=== PATIENT | male | born 1995 | race Two or more races ===

== ENCOUNTER 2019-12-26 10:10 | Emergency (ER) | payer SELFPAY ==
--- NOTE | 2019-12-26 10:33 | EDM.PDOC ---
ED HPI GENERAL MEDICAL PROBLEM - General Chief Complaint: Laceration Stated Complaint: LT INDEX FINGER Time Seen by Provider: 12/26/19 10:28 Source of Information: Reports: Patient, Family History Limitations: Reports: No Limitations - History of Present Illness INITIAL COMMENTS - FREE TEXT/NARRATIVE: Patient sustained a laceration to the left index finger @1 hour ago while slicing vegetables. Last Tetanus booster was 1 year ago. Patient is right hand dominant. Onset Date: 12/26/19 Onset Time: 09:20 Location: Reports: Upper Extremity, Left Severity: Mild Left Finger-Index Pain Score (Numeric/FACES): 3 - Related Data Allergies Allergy/AdvReac Type Severity Reaction Status Date / Time No Known Allergies Allergy Verified 12/26/19 10:22 Home Meds: Home Meds NK [No Known Home Meds] 12/26/19 [History] Past Medical History - Past Health History Medical/Surgical History: Denies Medical/Surgical History Social & Family History - Family History Family Medical History: Noncontributory - Tobacco Use Smoking Status *Q: Current Every Day Smoker Years of Tobacco use: 3 Packs/Tins Daily: 0.2 - Caffeine Use Caffeine Use: Reports: Soda - Recreational Drug Use Recreational Drug Use: No ED ROS GENERAL - Review of Systems Review Of Systems: Comprehensive ROS is negative, except as noted in HPI. ED EXAM, SKIN/RASH Exam: See Below Exam Limited By: No Limitations General Appearance: Alert, WD/WN, No Apparent Distress Head: Atraumatic, Normocephalic Neck: Full Range of Motion Respiratory/Chest: No Respiratory Distress Extremities: Normal Capillary Refill, Other (0.5 x 1 cm avulsion laceration to tip of left index finger, no active bleeding.) Neurological: Alert, No Motor/Sensory Deficits Psychiatric: Normal Affect, Normal Mood Skin: Other (as above) Course - Vital Signs Last Recorded V/S: Last Vital Signs Temp 37.1 C 12/26/19 10:22 Pulse 81 12/26/19 10:22 Resp 16 12/26/19 10:22 BP 131/91 H 12/26/19 10:22 Pulse Ox 99 12/26/19 10:22 - Re-Assessments/Exams Free Text/Narrative Re-Assessment/Exam: 12/26/19 10:31 Wound cleansed, adaptic gauze and dressing applied. Departure - Departure Time of Disposition: 10:31 Disposition: Home, Self-Care 01 Condition: Good Clinical Impression: Laceration of finger of left hand Qualifiers: Encounter type: initial encounter Finger: index finger Damage to nail status: without damage Foreign body presence: without foreign body Qualified Code(s): S61.211A - Laceration without foreign body of left index finger without damage to nail, initial encounter - Discharge Information *PRESCRIPTION DRUG MONITORING PROGRAM REVIEWED*: No *COPY OF PRESCRIPTION DRUG MONITORING REPORT IN PATIENT GAYLA: Not Applicable Instructions: Laceration Care, Adult Referrals: PCP,None [Primary Care Provider] - Additional Instructions: Keep dressing dry. Change dressing in 3 days. Follow up with symptoms or signs of infection, or if bleeding resumes. Sepsis Event Note - Evaluation Sepsis Screening Result: No Definite Risk - Focused Exam Vital Signs: Vital Signs Temp Pulse Resp BP Pulse Ox 12/26/19 10:22 37.1 C 81 16 131/91 H 99 Date Exam was Performed: 12/26/19 Time Exam was Performed: 10:28
== END 2019-12-26 10:56 | disposition home or self-care (01) ==
LOC: FB.ED 10:10
DX: S61.211A Laceration without foreign body of left index finger without damage to nail, initial encounter (principal); F17.210 Nicotine dependence, cigarettes, uncomplicated; W26.8XXA Contact with other sharp object(s), not elsewhere classified, initial encounter
CPT/HCPCS: 99282

== ENCOUNTER 2023-12-12 13:06 | Emergency (ER) | payer OTHER ==
[2023-12-12 14:27] LABS: BASOPHILS PERCENT AUTO 0.2 % (0.3-3.8); EOSINOPHILS PERCENT AUTO 0.1 % (0.1-6.8); HEMATOCRIT 51.1 % (38.3-50.1); HEMOGLOBIN 17.4 g/dL (12.9-17.7); LYMPHOCYTES ABSOLUTE AUTO 1.2 x10-3/uL (0.5-4.5); LYMPHOCYTES PERCENT AUTO 12.9 % (15.8-45.3); MEAN CORPUSCULAR HEMOGLOBIN 30.6 pg (27.0-33.3); MEAN CORPUSCULAR HGB CONC 34.1 g/dL (28.7-35.3); MEAN CORPUSCULAR VOLUME 89.7 fL (80.8-98.7); MEAN PLATELET VOLUME 8.7 fL (6.7-11.0); MONOCYTES ABSOLUTE AUTO 0.3 x10-3/uL (0.0-1.2); MONOCYTES PERCENT AUTO 3.2 % (5.5-15.2); NEUTROPHILS ABSOLUTE AUTO 7.5 x10-3/uL (1.7-6.9); NEUTROPHILS PERCENT AUTO 83.6 % (40.3-71.8); PLATELET COUNT,PLT 204 x10(3)uL (117-477); RED BLOOD CELL COUNT 5.69 x10(6)uL (3.90-5.90); RED CELL DISTRIBUTION WIDTH 12.9 % (12.4-15.0)
[2023-12-12] MEDS ORDERED: Sodium Chloride 0.9% 10 ML Syringe FLUSH PRN (14:40)
[2023-12-12 14:48] LABS: CHLORIDE,CL 105 mmol/L (100-110); GLUCOSE RANDOM 116 mg/dL (80-116); POTASSIUM,K 3.7 mmol/L (3.5-5.3); SODIUM,NA 140 mmol/L (135-145)
[2023-12-12 14:50] LABS: AMPHETAMINES SCREEN, URINE NEGATIVE (NEGATIVE); BARBITURATE SCREEN,URINE NEGATIVE (NEGATIVE); BENZODIAZEPINES SCREEN,URINE POSITIVE (NEGATIVE); BUPRENORPHINE SCREEN,URINE NEGATIVE (NEGATIVE); METHADONE SCREEN, URINE NEGATIVE (NEGATIVE); METHAMPHETAMINE SCREEN, URINE POSITIVE (NEGATIVE); OXYCODONE SCREEN,URINE NEGATIVE (NEGATIVE); THC SCREEN,URINE POSITIVE (NEGATIVE)
[2023-12-12 14:52] LABS: A/G RATIO 1.3; ALANINE AMINOTRANSFERASE,ALT 44 U/L (12-36); ALBUMIN 4.3 g/dL (3.5-5.2); ALKALINE PHOSPHATASE 129 IU/L (56-112); ASPARTATE AMNIOTRANSFERASE,AST 24 IU/L (5-25); BILIRUBIN TOTAL 0.7 mg/dL (0.1-1.3); PROTEIN TOTAL,TP 7.7 g/dL (6.0-8.0)
[2023-12-12 15:02] LABS: BLOOD UREA NITROGEN,BUN 9 mg/dL (7-18); CALCIUM 9.1 mg/dL (8.6-10.2); CARBON DIOXIDE,CO2 23 mmol/L (21-32); CREATININE 0.6 mg/dL (0.70-1.30); ESTIMATED GFR 137 mL/min (>60)
[2023-12-12] MEDS: LORazepam 2 MG/ML SDV IVPUSH ONE ×4 (15:09→18:17)
[2023-12-12] MEDS: Sodium Chloride 0.9% 500 ML IV ONE (15:10)
[2023-12-12 15:27] LABS: BILIRUBIN,URINE NEGATIVE (NEGATIVE); GLUCOSE,URINE NORMAL (NORMAL); KETONES,URINE 50 mg/dL (NEGATIVE); LEUKOCYTE ESTERASE,URINE NEGATIVE (NEGATIVE); NITRITE,URINE NEGATIVE (NEGATIVE); OCCULT BLOOD,URINE NEGATIVE (NEGATIVE); PROTEIN,URINE NEGATIVE (NEGATIVE); UROBILINOGEN,URINE NORMAL (NEGATIVE)
[2023-12-12 15:32] LABS: APPEARANCE,URINE CLEAR (CLEAR); BACTERIA,URINE OCCASIONAL (NS); COLOR,URINE YELLOW (YELLOW); SQUAMOUS EPITHELIAL CELLS,UR OCCASIONAL (NS,R,O); WBC,URINE 0-5 (0-5)
[2023-12-12] MEDS: Haloperidol Lactate 5 MG/ML SDV IVPUSH ONE ×2 (16:16→18:17)
[2023-12-12] MEDS ORDERED: Sodium Chloride 0.9% 1,000 ML IV SCH (18:30)
== END 2023-12-12 19:00 ==
LOC: FB.ED 13:06
DX: S06.6XAA Traumatic subarachnoid hemorrhage with loss of consciousness status unknown, initial encounter (principal); F19.10 Other psychoactive substance abuse, uncomplicated; R41.843 Psychomotor deficit; V49.49XA Driver injured in collision with other motor vehicles in traffic accident, initial encounter; Y93.89 Activity, other specified
CPT/HCPCS: 36415; 70450; 71045; 80053; 80307; 81001; 83735; 84484; 85025; 93005; 96374; 96375; 96376; 99285; J1630; J2060; J7040

== ENCOUNTER 2024-04-29 17:02 | Emergency (ER) | payer SELFPAY ==
[2024-04-29] MEDS ORDERED: Sodium Chloride 0.9% 10 ML Syringe FLUSH PRN (17:35)
[2024-04-29] MEDS: Sodium Chloride 0.9% 1,000 ML IV SCH (17:50)
[2024-04-29] MEDS: LORazepam 2 MG/ML SDV IVPUSH ONE (17:58)
[2024-04-29] MEDS: Ketorolac 30 MG/ML SDV IVPUSH ONE (17:59)
[2024-04-29 18:07] LABS: BASOPHILS PERCENT AUTO 0.4 % (0.3-3.8); EOSINOPHILS ABSOLUTE AUTO 0.1 x10-3/uL (0.0-0.6); HEMATOCRIT 48.8 % (38.3-50.1); HEMOGLOBIN 16.7 g/dL (12.9-17.7); LYMPHOCYTES ABSOLUTE AUTO 1.9 x10-3/uL (0.5-4.5); LYMPHOCYTES PERCENT AUTO 24.7 % (15.8-45.3); MEAN CORPUSCULAR HEMOGLOBIN 30.7 pg (27.0-33.3); MEAN CORPUSCULAR HGB CONC 34.2 g/dL (28.7-35.3); MEAN CORPUSCULAR VOLUME 89.8 fL (80.8-98.7); MEAN PLATELET VOLUME 8.9 fL (6.7-11.0); MONOCYTES ABSOLUTE AUTO 0.3 x10-3/uL (0.0-1.2); MONOCYTES PERCENT AUTO 4.2 % (5.5-15.2); NEUTROPHILS ABSOLUTE AUTO 5.4 x10-3/uL (1.7-6.9); NEUTROPHILS PERCENT AUTO 69.7 % (40.3-71.8); PLATELET COUNT,PLT 200 x10(3)uL (117-477); RED BLOOD CELL COUNT 5.44 x10(6)uL (3.90-5.90); RED CELL DISTRIBUTION WIDTH 12.9 % (12.4-15.0); WHITE BLOOD CELL COUNT,WBC 7.7 x10-3/uL (3.2-10.1)
[2024-04-29 18:10] LABS: BLOOD UREA NITROGEN,BUN 10 mg/dL (7-18); BUN/CREATININE RATIO 12.5 (9-20); CALCIUM 9.1 mg/dL (8.6-10.2); CARBON DIOXIDE,CO2 27 mmol/L (21-32); CHLORIDE,CL 102 mmol/L (100-110); CREATININE 0.8 mg/dL (0.70-1.30); ESTIMATED GFR 125 mL/min (>60); GLUCOSE RANDOM 100 mg/dL (80-116); SODIUM,NA 140 mmol/L (135-145)
[2024-04-29 18:16] LABS: A/G RATIO 1.2; ALANINE AMINOTRANSFERASE,ALT 25 U/L (12-36); ALBUMIN 4.3 g/dL (3.5-5.2); ALKALINE PHOSPHATASE 142 IU/L (56-112); ASPARTATE AMNIOTRANSFERASE,AST 14 IU/L (5-25); BILIRUBIN TOTAL 0.6 mg/dL (0.1-1.3)
[2024-04-29 18:23] LABS: PRO B-TYPE NATRIUR PEPT,BNPPRO 31 pg/mL (<=125); TROPONIN I < 4.0 pg/mL (4.0-60.3)
[2024-04-29 19:02] LABS: AMPHETAMINES SCREEN, URINE POSITIVE (NEGATIVE); BARBITURATE SCREEN,URINE NEGATIVE (NEGATIVE); BENZODIAZEPINES SCREEN,URINE NEGATIVE (NEGATIVE); METHADONE SCREEN, URINE NEGATIVE (NEGATIVE); METHAMPHETAMINE SCREEN, URINE POSITIVE (NEGATIVE); OXYCODONE SCREEN,URINE NEGATIVE (NEGATIVE)
[2024-04-29 19:03] LABS: THC SCREEN,URINE POSITIVE (NEGATIVE)
[2024-04-29 19:04] LABS: BUPRENORPHINE SCREEN,URINE NEGATIVE (NEGATIVE)
[2024-04-29] MEDS: Azithromycin 500 MG Tab PO ONE (19:07)
== END 2024-04-29 19:31 | disposition home or self-care (01) ==
LOC: FB.ED 17:02
DX: R09.1 Pleurisy (principal); J20.9 Acute bronchitis, unspecified; F15.10 Other stimulant abuse, uncomplicated; F12.10 Cannabis abuse, uncomplicated; F10.10 Alcohol abuse, uncomplicated; F17.210 Nicotine dependence, cigarettes, uncomplicated; Z79.899 Other long term (current) drug therapy
CPT/HCPCS: 36415; 71045; 80053; 80307; 83880; 84484; 85025; 85379; 93005; 96374; 96375; 99285-25; A9270-GY; J1885; J2060; J7030; U0002